=== PATIENT | female | born 1965 | race Caucasian/White ===

== ENCOUNTER → 2016-10-13 | Outpatient (CLI) | payer MEDICARE, MEDICAID | END | disposition home or self-care (01) | LOC: GMAM 10:53 | PROVIDERS: ATTEND Family Medicine | DX: E03.9 Hypothyroidism, unspecified (principal) ==

== ENCOUNTER → 2016-12-08 | Outpatient (CLI) | payer MEDICARE, MEDICAID ==
--- NOTE | 2016-12-08 15:15 | MAM ---
EXAM DESCRIPTION: 3D Screening BILATERAL CLINICAL HISTORY: 51 yearsFemaleSCREENING. No complaints. Aunt with breast cancer. Postmenopausal. No HRT. COMPARISON: 2-D digital screening bilateral study's 11/24/2015 and 11/19/2014. Report from prior examination also reviewed. TECHNIQUE: Bilateral CC and MLO projection full-field images, 3-D tomosynthesis digital mammographic technique. Also bilateral synthesized CC/ MLO full-field images. CAD not utilized. FINDINGS: The breast parenchymal density pattern is: Scattered areas of fibroglandular density. No skin thickening or nipple retraction bilateral axillary lymph nodes. Dense fibroglandular tissues are in the anterior third of both breasts. Stable lymph node in the upper inner quadrant of the middle third of the right breast. No focal, stellate mass or density, focal asymmetry , and no suspicious microcalcifications bilaterally. Stable mammograms compared to prior study, taking into account differences in mammographic technique IMPRESSION: BI-RADS CATEGORY: 2 - BENIGN FINDINGS. FOLLOW UP: Routine digital bilateral screening, one year interval from November 2016. Written communication explaining the findings and follow-up, will be mailed to the patient and referring health care provider. According to the [employer], yearly mammograms are recommended starting at age 40 and continuing as long as a woman is in good health. Any breast change noted on a breast self-exam should be reported promptly to the patient's healthcare provider. Breast MRI is recommended for women with an approximately 20-25% or greater lifetime risk of breast cancer, including women with a strong family history of breast or ovarian cancer and women who have been treated for Hodgkin's disease. A negative mammographic report should not delay tissue diagnosis in patients with significant clinical history or physical findings. Extremely dense breast tissue limits the sensitivity of digital mammography. Electronically signed by: Bryon Barnard MD 12/08/2016 3:13 PM CDT Workstation: [email or web address]
== END | disposition home or self-care (01) ==
LOC: MAMMO 14:50
PROVIDERS: ATTEND Family Medicine
DX: Z12.31 Encounter for screening mammogram for malignant neoplasm of breast (principal)
CPT/HCPCS: 77063; G0202

== ENCOUNTER → 2017-05-16 | Outpatient (CLI) | payer MEDICARE, MEDICAID | LOC: GMAM 10:34 | PROVIDERS: ATTEND Family Medicine | DX: E03.9 Hypothyroidism, unspecified (principal) ==

== ENCOUNTER → 2017-11-23 | Outpatient (CLI) | payer MEDICARE, MEDICAID | LOC: GMAM 10:14 | PROVIDERS: ATTEND Family Medicine | DX: E03.9 Hypothyroidism, unspecified (principal) ==

== ENCOUNTER → 2017-12-11 | Outpatient (CLI) | payer MEDICARE, MEDICAID ==
--- NOTE | 2017-12-12 12:00 | MAM ---
EXAM DESCRIPTION: 3D Screening BILATERAL : Digital Mammography. CLINICAL HISTORY: 52 years Female ANNUAL SCREENING . No personal history of breast cancer. Remote family history of breast cancer. No childbirth. Postmenopausal. No HRT.. Lifetime risk of developing breast cancer (Tyrer-Cuzick model) is 9.1 %. COMPARISON: Bilateral screening digital breast tomosynthesis 12/08/2016. TECHNIQUE: Bilateral CC and MLO projection full-field images, Digital tomosynthesis mammographic technique. Bilateral digital 2-D full-field MLO images. CAD not utilized. FINDINGS: Bilateral breast parenchymal density pattern is: Scattered areas of fibroglandular density. No skin thickening or nipple retraction. Bilateral axillary lymph nodes. Bilateral solitary microcalcifications. No new focal, stellate mass or density, focal asymmetry , and no suspicious microcalcifications bilaterally. Stable mammograms compared to prior study. IMPRESSION: Benign exam BIRAD CATEGORY: 2 BENIGN RECOMMENDATIONS: FOLLOW UP: Routine digital bilateral screening, one year interval from November 2017. Written communication explaining the IMPRESSION and follow-up, will be mailed to the patient and referring health care provider. According to the [employer], yearly mammograms are recommended starting at age 40 and continuing as long as a woman is in good health. Any breast change noted on a breast self-exam should be reported promptly to the patient's healthcare provider. Breast MRI is recommended for women with an approximately 20-25% or greater lifetime risk of breast cancer, including women with a strong family history of breast or ovarian cancer and women who have been treated for Hodgkin's disease. A negative mammographic report should not delay tissue diagnosis in patients with significant clinical history or physical findings. Extremely dense breast tissue limits the sensitivity of digital mammography. Electronically signed by: Bryon Barnard MD 12/12/2017 11:59 AM CDT
== END ==
LOC: MAMMO 08:30
PROVIDERS: ATTEND Family Medicine
DX: Z12.31 Encounter for screening mammogram for malignant neoplasm of breast (principal)

== ENCOUNTER → 2018-06-28 | Outpatient (CLI) | payer MEDICARE, MEDICAID ==
--- NOTE | 2018-06-29 09:54 | MRI ---
MRI right knee without contrast INDICATION: Knee pain no specific injury arthritis TECHNIQUE: Noncontrast MR imaging right knee standard protocol FINDINGS: Moderate to severe lateral patellar tracking with multifocal grade 4 chondral fissuring subchondral edema and cystic change patellar apex and lateral facet. Small to moderate joint effusion. Small Hernandez's cyst. Cruciate ligaments are intact with minimal interstitial degeneration of the ACL. Small ganglion or para meniscal cyst less likely anterior medial recess. Extensor tendons are intact. Grade 3-4 chondrosis in the midline trochlea on the sagittal images. Multifocal chondrosis in the tibiofemoral compartments most severe laterally which is nearly pyfy-yx-[id number] with up to grade 4 diffuse chondrosis. There is a macerated complex relatively horizontal tear throughout the lateral meniscus with partial lateral extrusion. Mild degenerative fraying medial meniscus. Collateral ligaments are intact. There is genu valgus alignment. IMPRESSION: Osteoarthrosis right knee most severe in the lateral tibiofemoral compartment and patellofemoral joint with genu valgus deformity Complex lateral meniscal tear with volume loss and partial lateral extrusion with maceration especially body and posterior horn No acute stabilizing ligament injury Lateral patellar tracking/subluxation Small to moderate joint effusion and small Hernandez's cyst Electronically signed by: Carlos Lemon MD 06/29/2018 9:50 AM CDT
== END ==
LOC: MRI 10:00
PROVIDERS: ATTEND Family Medicine
DX: S83.281A Other tear of lateral meniscus, current injury, right knee, initial encounter (principal); S83.011A Lateral subluxation of right patella, initial encounter; M17.11 Unilateral primary osteoarthritis, right knee; M71.21 Synovial cyst of popliteal space [Baker], right knee

== ENCOUNTER → 2018-07-13 | Outpatient (CLI) | payer MEDICARE, MEDICAID | LOC: GMAM 11:08 | PROVIDERS: ATTEND Family Medicine | DX: E03.9 Hypothyroidism, unspecified (principal) ==

== ENCOUNTER → 2018-07-16 | Outpatient (CLI) | payer MEDICARE, MEDICAID ==
--- NOTE | 2018-07-16 14:37 | RAD ---
EXAM DESCRIPTION: Pelvis CLINICAL HISTORY: 52 years Female, M25.551 COMPARISON: None. FINDINGS: Single AP view the pelvis shows no displaced pelvic fracture. Mild degenerative changes in the right sacroiliac joint. Severe degenerative changes in the right hip including joint space narrowing with vqjg-[id number]-wyzh or near ojec-za-dcng alignment. The left hip joint space is fairly well-maintained. Moderate amount of fine stool and gas. IMPRESSION: Advanced degenerative changes in the right hip including vwfx-ay-[id number] or near nhpd-ax-dkia alignment. Electronically signed by: Jose Carlos Zavala MD 07/16/2018 2:34 PM CDT
== END ==
LOC: RAD 07:59
PROVIDERS: ATTEND Orthopaedic Surgery
DX: M16.11 Unilateral primary osteoarthritis, right hip (principal); M25.551 Pain in right hip

== ENCOUNTER → 2018-08-01 | Outpatient (CLI) | payer MEDICARE, MEDICAID ==
--- NOTE | 2018-08-01 16:30 | CT ---
EXAM DESCRIPTION: Pelvis CLINICAL HISTORY: 52 years Female, OSTEOARTHRITIS OF PELVIC REGION COMPARISON: Radiograph of the pelvis dated 07/16/2018. TECHNIQUE: Contiguous axial images through the pelvis were obtained without intravenous contrast administration. Sagittal, coronal and 3-D reconstructions were reviewed. This exam was performed according to our departmental dose-optimization program, which includes automated exposure control, adjustment of the mA and/or kV according to patient size and/or use of iterative reconstruction technique. FINDINGS: The visualized bones appear well mineralized. No acute fracture or dislocation. Severe osteoarthritis of the right hip is noted with cfnl-lw-[id number] appearance. Large subchondral cysts are identified in the acetabular and femoral head. Large osteophytes are also identified. Mild degenerative changes are identified in the left hip joint. Moderate degenerative changes are identified in the symphysis pubis. The pelvic ring is intact. Incidental note is made of mild constipation. The urinary bladder demonstrates a circumferentially thick wall.. No other abnormality is noted in the visualized intrapelvic contents. IMPRESSION: 1. Severe right hip osteoarthritis with [id number]-[id number]-[id number] appearance. 2. Mild left hip osteoarthritis. Electronically signed by: Devi Ríos MD 08/01/2018 4:27 PM CDT
== END ==
LOC: CT 10:00
PROVIDERS: ATTEND Orthopaedic Surgery
DX: M16.0 Bilateral primary osteoarthritis of hip (principal)

== ENCOUNTER → 2018-08-02 | Outpatient (CLI) | payer MEDICARE, MEDICAID | LOC: LAB.O 14:25 | PROVIDERS: ATTEND Orthopaedic Surgery | DX: Z01.818 Encounter for other preprocedural examination (principal) ==

== ENCOUNTER 2018-08-16 12:48 | Emergency (ER) | payer MEDICARE, MEDICAID ==
[2018-08-16] MEDS ORDERED: DEXAMETHASONE INJ 4 MG/ML VIAL IV ONE (13:23)
[2018-08-16] MEDS ORDERED: PROCHLORPERAZINE INJ 10 MG/2 ML VIAL IV ONE (13:23)
[2018-08-16] MEDS ORDERED: SODIUM CHLORIDE 0.9% 500ML 500 ML IVS ONE (13:23)
--- NOTE | 2018-08-16 13:26 | ED.PDOC ---
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 Timing/Duration: 4-6 hours Severity: moderate Improving Factors: rest Worsening Factors: movement Associated Symptoms: headaches Allergies/Adverse Reactions: Allergies Penicillins Allergy (Verified 08/16/18 13:30) Home Medications: Ambulatory Orders Rosuvastatin Calcium [Crestor] 10 mg PO DAILY 08/04/14 Sulfamethoxazole-Trimethoprim [Bactrim Ds 800-160 mg] 1 tab PO BID #20 tab 01/29/16 DULoxetine HCL [Cymbalta] 30 mg PO DAILY 08/16/18 Lamotrigine 50 mg PO QPM 08/16/18 Levothyroxine Sodium [Synthroid] 0.025 mg PO QAM 08/16/18 Meclizine HCl [Meclizine 25] 25 mg PO Q4HR PRN #30 tab 08/16/18 rifAMPin [Rifampin] 300 mg PO DAILY 08/16/18 Review of Systems - Review of Systems Constitutional: States: no symptoms reported EENTM: States: see HPI Respiratory: States: no symptoms reported Cardiology: States: no symptoms reported Gastrointestinal/Abdominal: States: no symptoms reported Genitourinary: States: no symptoms reported Musculoskeletal: States: joint pain - right hip chronic Skin: States: no symptoms reported Neurological: States: see HPI, other - dizziness Endocrine: States: see HPI Hematologic/Lymphatic: States: no symptoms reported Past Medical History (General) - Patient Medical History Hx Seizures: No Hx Stroke: No Hx Dementia: No Hx Asthma: No Hx of COPD: No Hx Cardiac Disorders: No Hx Congestive Heart Failure: No Hx Pacemaker: No Hx Hypertension: No Hx Thyroid Disease: No Hx Gastroesophageal Reflux: Yes Hx Renal Disease: No Hx Cancer: No Hx of HIV: No Hx Hepatitis C: No Hx MRSA: No Surgical History: tonsillectomy - Vaccination History Hx Influenza Vaccination: Yes - Social History Hx Tobacco Use: No Hx Alcohol Use: No Hx Depression: No Feels Threatened In Home Enviroment: No Hx Physical Abuse: No Hx Emotional Abuse: No - Female History Patient is a Female of Child Bearing Age (10 -59 yrs old): Yes Patient : No Family Medical History - Family History Father Living Status: Still Living Hx Family Hypertension: Yes Hx Family Diabetes: Yes Mother Hx Family Hypertension: Yes Hx Family Diabetes: Yes Physical Exam - Physical Exam General Appearance: Alert, Comfortable, No apparent distress Eye Exam: bilateral normal Ears, Nose, Throat: hearing grossly normal, normal ENT inspection, normal pharynx Neck: non-tender, full range of motion, supple, normal inspection Respiratory: chest non-tender, lungs clear, normal breath sounds, no respiratory distress Cardiovascular/Chest: normal peripheral pulses, regular rate, rhythm, diastolic murmur - 2 LICS Peripheral Pulses: radial,right: 2+, radial,left: 2+ Gastrointestinal/Abdominal: normal bowel sounds, non tender, soft Back Exam: no CVA tenderness, no vertebral tenderness Extremity: normal range of motion, non-tender Neurologic: alert, oriented x 3 Skin Exam: normal color, warm/dry Lymphatic: no adenopathy Progress - Progress Progress: 08/16/18 13:34 Vital Signs - 24 hr 08/16/18 13:21 Temperature 97.5 F L Pulse Rate [L 56 L finger] Respiratory 18 Rate Blood Pressure 148/78 [R arm] O2 Sat by Pulse 100 Oximetry - Results/Orders Results/Orders: 08/16/18 13:23 IV Care:Saline Lock per Protoc QSHIFT Laboratory Results - last 24 hr 08/16/18 08/16/18 08/16/18 13:29 13:29 13:29 WBC 5.6 RBC 4.48 Hgb 14.4 Hct 43.0 MCV 96.1 MCH 32.2 H MCHC 33.5 RDW 14.8 H Plt Count 322 MPV 7.6 Absolute Neuts (auto) 4.10 Absolute Lymphs (auto) 1.00 Absolute Monos (auto) 0.50 Absolute Eos (auto) 0.00 Absolute Basos (auto) 0.10 Neutrophils % 73.0 Lymphocytes % 17.1 L Monocytes % 8.1 Eosinophils % 0.5 L Basophils % 1.3 ESR 21 PT 9.7 INR 0.97 PTT (SP) 27.9 Sodium 131 L Potassium 3.8 Chloride 97 L Carbon Dioxide 22 Anion Gap 15.8 BUN 11 Creatinine 0.84 BUN/Creatinine Ratio 13.1 Random Glucose 108 H Serum Osmolality 262.6 L Lactic Acid 1.4 Calcium 9.0 Magnesium 2.3 Total Bilirubin 1.0 Direct Bilirubin 0.3 H Indirect Bilirubin 0.7 AST 44 H ALT 32 Alkaline Phosphatase 79 Creatine Kinase 85 CK-MB (CK-2) 3.0 CK-MB (CK-2) % Not Reportable Troponin I < 0.02 Serum Total Protein 7.8 Albumin 4.2 Urine Color Urine Appearance Urine pH Ur Specific [place] Urine Protein Urine Glucose (UA) Urine Ketones Urine Blood Urine Nitrite Urine Bilirubin Urine Urobilinogen Ur Leukocyte Esterase Urine RBC Urine WBC Ur Epithelial Cells Urine Bacteria 08/16/18 14:17 WBC RBC Hgb Hct MCV MCH MCHC RDW Plt Count MPV Absolute Neuts (auto) Absolute Lymphs (auto) Absolute Monos (auto) Absolute Eos (auto) Absolute Basos (auto) Neutrophils % Lymphocytes % Monocytes % Eosinophils % Basophils % ESR PT INR PTT (SP) Sodium Potassium Chloride Carbon Dioxide Anion Gap BUN Creatinine BUN/Creatinine Ratio Random Glucose Serum Osmolality Lactic Acid Calcium Magnesium Total Bilirubin Direct Bilirubin Indirect Bilirubin AST ALT Alkaline Phosphatase Creatine Kinase CK-MB (CK-2) CK-MB (CK-2) % Troponin I Serum Total Protein Albumin Urine Color Dille H Urine Appearance Clear Urine pH 8.5 H Ur Specific [place] 1.020 Urine Protein 30 Urine Glucose (UA) Negative Urine Ketones Trace Urine Blood Negative Urine Nitrite Negative Urine Bilirubin Small H Urine Urobilinogen 4.0 H Ur Leukocyte Esterase Negative Urine RBC 0 Urine WBC 0 Ur Epithelial Cells 0 Urine Bacteria 0 Discuss all test result with patient .Wanting to go home - EKG/XRAY/CT XRAY: chest - no acute findings CT Ordered: Yes - head no acute abnormalities noted Departure - Departure Clinical Impression: Dizziness, nonspecific Headache Qualifiers: Headache type: unspecified Headache chronicity pattern: unspecified pattern Intractability: not intractable Qualified Code(s): R51 - Headache Time of Disposition: 15:17 Disposition: Discharge to Home or Self Care Condition: Fair Departure Forms: ED Discharge - Pt. Copy, Patient Portal Self Enrollment Instructions: Dizziness, Nonvertigo, (DC) Referrals: Buddy Calderon MD [Primary Care Provider] - 1-2 Weeks Prescriptions: Meclizine HCl [Meclizine 25] 25 mg PO Q4HR PRN #30 tab PRN Reason: Dizziness Home Medications: Ambulatory Orders Rosuvastatin Calcium [Crestor] 10 mg PO DAILY 08/04/14 Sulfamethoxazole-Trimethoprim [Bactrim Ds 800-160 mg] 1 tab PO BID #20 tab 01/29/16 DULoxetine HCL [Cymbalta] 30 mg PO DAILY 08/16/18 Lamotrigine 50 mg PO QPM 08/16/18 Levothyroxine Sodium [Synthroid] 0.025 mg PO QAM 08/16/18 Meclizine HCl [Meclizine 25] 25 mg PO Q4HR PRN #30 tab 08/16/18 rifAMPin [Rifampin] 300 mg PO DAILY 08/16/18 Additional Instructions: Continue with all home medications;Return to Emergency Room as needed
--- NOTE | 2018-08-16 13:58 | RAD ---
EXAM DESCRIPTION: Chest,1 View CLINICAL HISTORY: 52 years Female, dizziness/tyler COMPARISON: 08/04/2014 IMPRESSION: The heart is enlarged, without failure. There is no airspace consolidation, pleural effusion, or pneumothorax. No acute osseous abnormality. Electronically signed by: Shan Jeffries MD 08/16/2018 1:56 PM CDT
--- NOTE | 2018-08-16 13:59 | CT ---
EXAM DESCRIPTION: Head CLINICAL HISTORY: dizziness /headache COMPARISON: Previous CT scan April 24, 2012 TECHNIQUE: Noncontrast head CT was performed with routine protocol. FINDINGS: Normal mathur-white matter differentiation. Incidental calcification of the basal ganglia. Ventricles and sulci are normal for age. Prominent vessels along the surface of the left parietal lobe are unchanged suggesting vascular malformation. Previous postcontrast study showed large tortuous vessels over the surface of the left cerebral hemisphere. No high density hemorrhage, focal edema or shift of the midline. No sulcal effacement. Normal orbital contents. Basilar cisterns appear clear. Intact calvarium with no fracture or lytic lesion. Normal aeration of tympanic cavities and mastoid air cells. Frothy fluid in left sphenoid sinus. Skull base appears intact. Symmetrical internal auditory canals. IMPRESSION: No acute intracranial pathologic process. This exam was performed according to our departmental dose-optimization program, which includes automated exposure control, adjustment of the mA and/or kV according to patient size and/or use of iterative reconstruction technique. Total DLP equals 752.48 mGycm. Electronically signed by: Derrell Ennis MD 08/16/2018 1:57 PM CDT
[2018-08-16] MEDS ORDERED: ALPRAZolam 0.25 MG TAB PO ONE (14:45)
[2018-08-16 15:45] VITALS: BP 143/82; TEMP 96.5; O2SAT 100
== END 2018-08-16 15:35 | disposition home or self-care (01) ==
LOC: ER 12:48
DX: R51 Headache (principal); R42 Dizziness and giddiness; Q90.9 Down syndrome, unspecified; K21.9 Gastro-esophageal reflux disease without esophagitis; Z79.899 Other long term (current) drug therapy; Z88.0 Allergy status to penicillin
CPT/HCPCS: 36415; 70450; 71045; 80048; 80076; 81001; 82550; 82553; 83605; 84484; 85025; 85610; 85651; 85730; J0780; J1100; J7040

== ENCOUNTER → 2018-08-23 | Outpatient (CLI) | payer MEDICARE, MEDICAID | LOC: GMAM 15:07 | PROVIDERS: ATTEND Family Medicine | DX: E03.9 Hypothyroidism, unspecified (principal) ==

== ENCOUNTER 2018-08-31 05:55 | Inpatient (IN) | payer MEDICARE, MEDICAID ==
--- NOTE | 2018-08-30 11:06 | RAD ---
EXAM DESCRIPTION: Cervical Spine,3 Views CLINICAL HISTORY: 52 years Female, surgery COMPARISON: None. FINDINGS: Three-view cervical spine demonstrates reversal of normal lordosis in the mid cervical spine with marked disc degeneration from C2-3 through C6-7 with minimal curvature of the spine convex to the left. No marked anterior subluxation is noted. The odontoid is intact. IMPRESSION: Advanced multilevel degenerative disc disease with loss of normal cervical lordosis and milder facet arthrosis noted. Bony ridging posteriorly is most evident at the C3-4 level. Electronically signed by: Buddy Orta MD 08/30/2018 11:04 AM CDT
--- NOTE | 2018-08-30 13:48 | HP ---
CHIEF COMPLAINT: Right hip pain. HISTORY OF PRESENT ILLNESS: Irish is a 52-year-old lady with a history of hip pain and pain in the knee. She has had treatment for the knee, however, has still had ongoing discomfort. The pain seems to be radiating from the hip which does have severe arthritis. Because of those findings, we have discussed options. Irish does have Down syndrome and I discussed all these medical options with her parents. After discussing the risks, benefits and alternatives to operative therapy, they have given informed consent for total hip arthroplasty. PAST SURGICAL HISTORY: None. MEDICATIONS: 1. Calcium. 2. Duloxetine. 3. Levothyroxine. 4. Aspirin. 5. Multiple vitamins. ALLERGIES: NO KNOWN DRUG ALLERGIES. CODE STATUS: Full code. IMMUNIZATIONS: Up to date. FAMILY HISTORY: None pertinent to today's complaint. SOCIAL HISTORY: The patient does not drink, smoke or use any illicit drugs. REVIEW OF SYSTEMS: Negative except as indicated in the History of Present Illness. PHYSICAL EXAMINATION: VITAL SIGNS: Blood pressure 120/50. Pulse 70. Height 5'. Weight 132 pounds. MENTAL STATUS: The patient is awake, alert, and is able to give a good history and participate in the physical. The patient is oriented to person, place and time. SKIN: Normal tone and turgor. HEENT: Normocephalic, atraumatic. Pupils equal, round and reactive. Mucosal membranes are moist. NECK: Normal range of motion. No thyromegaly, no lymphadenopathy. CHEST: Normal respiratory excursion. CARDIAC: Regular rate and rhythm. No murmurs, rubs or gallops. MUSCULOSKELETAL: She has full range of motion in the upper extremities without pain. She has no crepitus or deformity. The extremities are warm and well perfused. strength is 5/5. The left lower extremity shows no pain with range of motion of the hip or knee. She has intact sensation. There is no deformity. It is warm and well perfused. The right lower extremity shows severe pain with range of motion of the hip and especially with internal rotation which is only to about 5 degrees. She has external rotation to about 15 degrees. Sensation is intact. It is warm and well perfused. She has 5/5 strength in plantar flexion. She has some minor pain with palpation to the knee. There is no swelling or deformity at that level. IMAGING: X-rays show severe arthritis of the hip. ASSESSMENT: 1. Osteoarthritis. PLAN: The plan at this point is for total hip arthroplasty. We have discussed the risks, benefits, and alternatives to that and informed consent has been obtained. #[id number] [facility]
[2018-08-31] MEDS ORDERED: SODIUM CHL 0.9% 100ML MINI-BAG 100 ML IVPB ONE (06:00)
[2018-08-31] MEDS ORDERED: TRANEXAMIC ACID 1,000 MG/10 ML VIAL ONE ×2 (06:00→06:02)
[2018-08-31] MEDS ORDERED: LACTATED RINGERS 1,000 ML ONE (06:00)
[2018-08-31] MEDS ORDERED: VANCOMYCIN HCL INJ 1,000 MG VIAL IVPB ONE ×3 (06:01→19:19)
[2018-08-31] MEDS ORDERED: SODIUM CHLORIDE 0.9% 250ML 250 ML ONE ×3 (06:01→19:18)
[2018-08-31] MEDS ORDERED: SODIUM CHLORIDE 0.9% 100ML 100 ML IVPB ONE (06:01)
[2018-08-31] MEDS ORDERED: ceFAZolin SODIUM 1 GM VIAL ONE ×4 (06:01→19:19)
[2018-08-31] MEDS ORDERED: MORPHINE SULFATE *EPIDURAL* 0.5 MG/ML VIAL ONE (06:37)
[2018-08-31] MEDS ORDERED: fentaNYL CITRATE INJ 50 MCG/ML AMP ONE (06:37)
[2018-08-31] MEDS ORDERED: MIDAZOLAM INJ 2 MG/2 ML VIAL ONE (06:37)
[2018-08-31] MEDS ORDERED: NALOXONE HCL INJ 0.4 MG/ML VIAL IV PRN (07:02)
[2018-08-31] MEDS ORDERED: PROMETHAZINE HCL INJ 12.5 MG in SODIUM CHLORIDE 0.9% 50ML 50 ML IVPB PRN (07:02)
[2018-08-31] MEDS ORDERED: ACETAMINOPHEN 500 MG TAB PO PRN (07:02)
[2018-08-31] MEDS ORDERED: PROMETHAZINE HCL INJ 25 MG in SODIUM CHLORIDE 0.9% 50ML 50 ML IVPB PRN (07:02)
[2018-08-31] MEDS ORDERED: ZOLPIDEM TARTRATE 5 MG TAB PO PRN (07:02)
[2018-08-31] MEDS ORDERED: SODIUM CHLORIDE 0.45% 1000ML 1,000 ML IV PRN (07:02)
[2018-08-31] MEDS ORDERED: CYCLOBENZAPRINE HCL 10 MG TAB PO PRN (07:02)
[2018-08-31] MEDS ORDERED: BISACODYL SUPPOSITORY 10 MG PR PRN (07:02)
[2018-08-31] MEDS ORDERED: MORPHINE SULFATE INJ 10 MG/ML VIAL IV PRN (07:02)
[2018-08-31] MEDS ORDERED: ALUMINUM & MAGNESIUM HYDROXIDE 30 ML UD PO PRN (07:02)
[2018-08-31] MEDS ORDERED: SODIUM CHLORIDE 0.9% (FLUSH) 10 ML SYG IV PRN (07:02)
[2018-08-31] MEDS ORDERED: ONDANSETRON INJ 4 MG/2 ML VIAL IV PRN (07:02)
[2018-08-31] MEDS ORDERED: ACETAMINOPHEN 325 MG TAB PO PRN (07:02)
[2018-08-31] MEDS ORDERED: TEMAZEPAM 15 MG CAP PO PRN (07:02)
[2018-08-31] MEDS ORDERED: TRANEXAMIC ACID INJ 1,000 MG in SODIUM CHLORIDE 0.9% 100ML 100 ML IVPB ONE (07:02)
[2018-08-31] MEDS ORDERED: BENZOCAINE-MENTH LOZ (CEPACOL) 1 EA LOZ MT PRN (07:02)
[2018-08-31] MEDS ORDERED: MAGNESIUM HYDROXIDE 30 ML UD PO PRN (07:02)
[2018-08-31] MEDS ORDERED: MORPHINE SULFATE INJ 10 MG/ML VIAL IM PRN (07:02)
[2018-08-31] MEDS ORDERED: ROCURONIUM BROMIDE 10 MG/ML VIAL ONE (07:14)
[2018-08-31] MEDS ORDERED: MORPHINE PCA 1 MG/ML 100 ML BAG IVPB SCH (07:30)
[2018-08-31] MEDS ORDERED: ACETAMINOPHEN IV 1000MG 100 ML ONE (08:13)
[2018-08-31] MEDS: ceFAZolin SODIUM 1 GM VIAL ONE ×2 (08:15→08:52)
[2018-08-31] MEDS: VANCOMYCIN HCL INJ 1,000 MG VIAL IVPB ONE ×2 (08:15→08:52)
[2018-08-31] MEDS: BUPIVACAINE 0.5% 30 ML VIAL INJ ONE ×2 (08:16→08:52)
[2018-08-31] MEDS: BUPIVACAINE LIPOSOME 13.3 MG/ML VIAL INJ ONE ×2 (08:16→08:52)
[2018-08-31] MEDS ORDERED: BUPIVACAINE LIPOSOME 13.3 MG/ML VIAL INJ ONE (08:32)
[2018-08-31] MEDS ORDERED: ELECTROLYTE-A 1,000 ML IVS ONE (09:02)
[2018-08-31] MEDS ORDERED: SUGAMMADEX SODIUM 200 MG/2 ML VIAL IV ONE (09:40)
[2018-08-31] MEDS ORDERED: ePHEDrine SULF 50 MG/ML IV ONE (10:00)
[2018-08-31] MEDS ORDERED: PROPOFOL 200 MG/20 ML VIAL IV ONE (10:00)
[2018-08-31] MEDS ORDERED: raNITIdine HCL INJ 25 MG/ML VIAL IV ONE (10:00)
[2018-08-31] MEDS ORDERED: DEXAMETHASONE INJ 10 MG/ML VIAL IV ONE (10:00)
[2018-08-31] MEDS ORDERED: LIDOCAINE 1% 10 ML VIAL INJ ONE (10:00)
[2018-08-31] MEDS ORDERED: SODIUM CHL 0.9% 50ML MIN-BAG+ 50 ML IVPB ONE ×2 (16:45→19:18)
[2018-08-31] MEDS: MAGNESIUM OXIDE 400 MG TAB PO SCH (16:45)
[2018-08-31] MEDS: IV SET AND CAP CHANGE INJ INJ SCH (16:45)
[2018-08-31] MEDS: ceFAZolin SODIUM 1 GM in SODIUM CHL 0.9% 50ML MIN-BAG+ 50 ML IVPB SCH ×2 (16:47→23:59)
[2018-08-31] MEDS: CELECOXIB 100 MG CAP PO SCH (16:52)
[2018-08-31] MEDS: VANCOMYCIN HCL INJ 1,000 MG in SODIUM CHLORIDE 0.9% 250ML 250 ML IVPB SCH (18:14)
[2018-08-31] MEDS: lamoTRIgine 25 MG TAB PO SCH (18:15)
[2018-08-31] MEDS ORDERED: LEVOTHYROXINE SODIUM 0.025 MG TAB ONE (19:18)
[2018-08-31] MEDS ORDERED: ENOXAPARIN SODIUM 30 MG/0.3 ML SYG SUBCU ONE (19:18)
[2018-08-31] MEDS ORDERED: KCL 20MEQ/0.45% NS 1,000 ML IVS ONE (20:26)
[2018-08-31] MEDS: DOCUSATE CALCIUM 240 MG CAP PO SCH (20:33)
--- NOTE | 2018-08-31 22:01 | CONS ---
DATE OF CONSULTATION: 08/31/18 SUPERVISING PHYSICIAN: Coy Salas M.D. CHIEF COMPLAINT: Right hip pain. HISTORY OF PRESENT ILLNESS: This is a 52 year-old female patient who has a history of right hip and knee pain. She does have severe arthritis in that hip that radiates down to the knee. Because of this discomfort, Irish and her family have requested that Dr. Channing Alarcon, orthopedic surgeon, perform right total hip replacement. The patient had no problems intraoperatively. She was brought to the Medical/Surgical floor after surgery. Irish does have a history of Down's syndrome. Her father is at the bedside. PAST MEDICAL HISTORY: 1. Down's syndrome. 2. Seizure disorder. 3. Gastroesophageal reflux disease. 4. Hyperlipidemia. 5. Hypothyroidism. PAST SURGICAL HISTORY: 1. Tonsillectomy. HOME MEDICATIONS: 1. Aspirin. 2. Calcium. 3. Multivitamins. 4. Cymbalta. 5. Lamotrigine. 6. Levothyroxine. ALLERGIES: PENICILLIN. CODE STATUS: FULL CODE. FAMILY HISTORY: Noncontributory. SOCIAL HISTORY: She lives in [place] with her parents. She does not use tobacco, ETOH or illicit drugs. REVIEW OF SYSTEMS: Negative except as per History of Present Illness. PHYSICAL EXAMINATION: VITAL SIGNS: Temperature 98.2, heart rate 61, blood pressure 88/42, respiratory rate 20, O2 sat 100% on room air. GENERAL: This is a 52 year-old female patient who is lying in her hospital bed. She is in no acute distress. HEENT: Normocephalic and atraumatic. Pupils are equal and reactive. Oropharynx is clear. NECK: Supple without mass. RESPIRATORY: Essentially clear to auscultation bilaterally. HEART: Regular rate and rhythm. GASTROINTESTINAL: Abdomen is soft, nondistended, non-tender. Bowel sounds are positive. EXTREMITIES: No clubbing, cyanosis or edema. She does have bilateral pedal pulses that are palpable at +2. She has a dressing to the right lateral aspect of her hip that is dry and intact. NEUROLOGIC: She is awake, alert and oriented times three. LABORATORY: CBC is unremarkable. BMP shows sodium 138, potassium 3.5, chloride 102, carbon dioxide 27, BUN 9, creatinine 0.63. Urinalysis is negative. UDS is negative. All other labs and films have been reviewed via the EMR. IMPRESSION: 1. Osteoarthritis of the right hip status post right total hip arthroplasty performed by Dr. Channing Alarcon, orthopedic surgeon. Postoperative day #0. 2. Down's syndrome. 3. Seizure disorder. 4. Hyperlipidemia. 5. Hypothyroidism. PLAN: We will continue present supportive care. Orthopedic issues will be per Dr. Channing Alarcon, orthopedic surgeon. She will begin physical therapy for strengthening and conditioning tomorrow. I have restarted her home medications. Her blood pressure is slightly on the low side, but she has no symptoms of decreased level of consciousness and she continues to urinate without problems. If needed, I will give her a 250 bolus of IV fluids. I have instructed the nurses to call me if she has any problems. I have discussed with her dad hip precautions as well as good pulmonary hygiene, including incentive spirometry. Will continue to monitor closely and follow as needed. [facility][id number] [facility]
[2018-08-31] MEDS: ENOXAPARIN SODIUM 30 MG/0.3 ML SYG SUBCU SCH (22:33)
[2018-09-01] MEDS: LEVOTHYROXINE SODIUM 0.025 MG TAB PO SCH (06:13)
[2018-09-01] MEDS: VANCOMYCIN HCL INJ 1,000 MG in SODIUM CHLORIDE 0.9% 250ML 250 ML IVPB SCH (06:13)
[2018-09-01] MEDS ORDERED: ceFAZolin SODIUM 1 GM VIAL ONE (07:07)
[2018-09-01] MEDS ORDERED: SODIUM CHL 0.9% 50ML MIN-BAG+ 50 ML IVPB ONE (07:07)
[2018-09-01] MEDS: CELECOXIB 100 MG CAP PO SCH ×2 (07:21→17:28)
[2018-09-01] MEDS: ceFAZolin SODIUM 1 GM in SODIUM CHL 0.9% 50ML MIN-BAG+ 50 ML IVPB SCH (07:22)
[2018-09-01] MEDS: MAGNESIUM OXIDE 400 MG TAB PO SCH (09:45)
[2018-09-01] MEDS: DULoxetine HCL 30 MG CAP PO SCH (09:45)
[2018-09-01] MEDS ORDERED: LACTATED RINGERS 1,000 ML IVS PRN (10:07)
[2018-09-01] MEDS: ENOXAPARIN SODIUM 30 MG/0.3 ML SYG SUBCU SCH ×2 (12:03→22:34)
--- NOTE | 2018-09-01 14:44 | PN ---
DATE: 09/01/18 SUBJECTIVE: Irish is actually doing pretty well. She has been up out of bed. She is not having much in the way of pain. PLAN: At this point Irish is going to continue on with therapy. I have gone over with Irish and her mom again regarding the necessary activity on the patient with her. She is going to continue to utilize an abduction pillow. #[id number] [facility]
--- NOTE | 2018-09-01 15:15 | PN ---
DATE: 09/01/18 SUPERVISING PHYSICIAN: Coy Salas M.D. SUBJECTIVE: The patient indicates she does not have any pain at this time. The nurses at the bedside state that she has been using her SURVEY FIELD TECHNICIAN pump and has good pain control. She is out of bed and in a chair at this time. OBJECTIVE: Blood pressure 83/55, heart rate 65, respiratory rate 14, temperature 98.3, oxygen saturation 99%. GENERAL: Ms. Summers is a 52 year- old female with no active distress currently. NEUROLOGIC: The patient is alert. LUNGS: Clear. CARDIOVASCULAR: Regular rate and rhythm. Normal S1 and S2. ABDOMEN: Soft. Positive bowel sounds. EXTREMITIES: Right hip with a dressing that dry and intact. LABORATORY: Hemoglobin 10.4, hematocrit 31.8. Chemistry shows sodium 137, potassium 4.0, chloride 106, CO2 is 23, BUN is less than 5, creatinine 0.47, calcium 7.0. ASSESSMENT: 1. Right hip osteoarthritis status post right total hip arthroplasty. Postoperative day #1. 2. Down's syndrome. 3. Seizure disorder. 4. Hyperlipidemia. 5. Hypothyroidism. PLAN: Will continue physical therapy and pain control per postoperative orders. Anticoagulation will start as well. I will recheck a hemoglobin tomorrow as there is about a 4 gram drop in the hemoglobin from the one before. [facility][id number] [facility]
[2018-09-01] MEDS: lamoTRIgine 25 MG TAB PO SCH (17:28)
[2018-09-01] MEDS: DOCUSATE CALCIUM 240 MG CAP PO SCH (20:37)
[2018-09-02] MEDS: LEVOTHYROXINE SODIUM 0.025 MG TAB PO SCH (06:09)
[2018-09-02] MEDS: HYDROcodone 5MG/APAP 325MG 1 EA TAB PO PRN ×3 (07:08→20:57)
[2018-09-02] MEDS: CELECOXIB 100 MG CAP PO SCH ×2 (07:53→17:14)
[2018-09-02] MEDS ORDERED: SODIUM CHLORIDE 0.9% (FLUSH) 10 ML SYG IV SCH (09:00)
[2018-09-02] MEDS: MAGNESIUM OXIDE 400 MG TAB PO SCH (09:04)
[2018-09-02] MEDS: DULoxetine HCL 30 MG CAP PO SCH (09:04)
--- NOTE | 2018-09-02 09:33 | RAD ---
EXAM DESCRIPTION: Hip,Right 2 Views (accession [id number]), Pelvis (accession [id number]): CR/DR/XR CLINICAL HISTORY: post op right total hip arthroplasty. COMPARISON: AP pelvis 07/16/2018, prior to surgery. TECHNIQUE: One view AP pelvis and 2 views of the right hip. FINDINGS: Right total hip arthroplasty. 3 screws fixating the acetabular component. Customary position and near-anatomic alignment. Bones surrounding the components is unremarkable. No fracture. No abnormal radiodense objects in the soft tissues or joint spaces. 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 IMPRESSION: Right total hip arthroplasty customary position and near-anatomic alignment. No bony or hardware abnormalities. Electronically signed by: Bryon Barnard MD 09/02/2018 9:31 AM CDT
--- NOTE | 2018-09-02 09:34 | RAD ---
EXAM DESCRIPTION: Hip,Right 2 Views (accession [id number]), Pelvis (accession [id number]): CR/DR/XR CLINICAL HISTORY: post op right total hip arthroplasty. COMPARISON: AP pelvis 07/16/2018, prior to surgery. TECHNIQUE: One view AP pelvis and 2 views of the right hip. FINDINGS: Right total hip arthroplasty. 3 screws fixating the acetabular component. Customary position and near-anatomic alignment. Bones surrounding the components is unremarkable. No fracture. No abnormal radiodense objects in the soft tissues or joint spaces. 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 IMPRESSION: Right total hip arthroplasty customary position and near-anatomic alignment. No bony or hardware abnormalities. Electronically signed by: Bryon Barnard MD 09/02/2018 9:31 AM CDT
[2018-09-02] MEDS: ENOXAPARIN SODIUM 30 MG/0.3 ML SYG SUBCU SCH ×2 (12:39→23:06)
--- NOTE | 2018-09-02 16:46 | PN ---
DATE: 09/02/18 SUPERVISING PHYSICIAN: Coy Salas M.D. SUBJECTIVE: The patient does not complain of any pain at this time. She did get some [employer] around 7:00 this morning and has been doing well with this. She walked to the door and back. OBJECTIVE: Blood pressure is 90/64, heart rate 70, respiratory rate 14, temperature 97.5, oxygen saturation 97%. GENERAL: Ms. Summers is a 52 year- old female in no active distress. NEUROLOGIC: The patient is alert. LUNGS: Clear to auscultation bilaterally. CARDIOVASCULAR: Regular rate and rhythm. Normal S1 and S2. ABDOMEN: Soft, obese. Positive bowel sounds. EXTREMITIES: Right hip with dressing that is dry and intact. LABORATORY: Hemoglobin 10.6. ASSESSMENT: 1. Right hip osteoarthritis status post right total hip arthroplasty. Postoperative day #2. 2. Down's syndrome. 3. Seizure disorder. 4. Hyperlipidemia. 5. Hypothyroidism. PLAN: Continue physical therapy and pain control per postoperative orders. Continue anticoagulation. Depending on Physical Therapy evaluation, she may need Swing Bed but will have them evaluate that tomorrow. #[id number] [facility]
[2018-09-02] MEDS: lamoTRIgine 25 MG TAB PO SCH (17:14)
[2018-09-02] MEDS: DOCUSATE CALCIUM 240 MG CAP PO SCH (20:56)
[2018-09-02] MEDS: SODIUM CHLORIDE 0.9% (FLUSH) 10 ML SYG IV SCH (21:00)
[2018-09-03] MEDS: LEVOTHYROXINE SODIUM 0.025 MG TAB PO SCH (06:04)
[2018-09-03] MEDS: DULoxetine HCL 30 MG CAP PO SCH (07:49)
[2018-09-03] MEDS: CELECOXIB 100 MG CAP PO SCH (07:49)
[2018-09-03] MEDS: IV SET AND CAP CHANGE INJ INJ SCH (07:50)
[2018-09-03] MEDS: MAGNESIUM OXIDE 400 MG TAB PO SCH (07:50)
[2018-09-03] MEDS: SODIUM CHLORIDE 0.9% (FLUSH) 10 ML SYG IV SCH (07:50)
[2018-09-03] MEDS: HYDROcodone 5MG/APAP 325MG 1 EA TAB PO PRN (08:50)
[2018-09-03 10:10] VITALS: BP 92/59; TEMP 97.7; O2SAT 92
[2018-09-03] MEDS: ENOXAPARIN SODIUM 30 MG/0.3 ML SYG SUBCU SCH (11:10)
[2018-09-03] MEDS ORDERED: BISACODYL SUPPOSITORY 10 MG PR ONE (21:00)
[2018-09-03] MEDS ORDERED: MAGNESIUM HYDROXIDE 30 ML UD PO ONE (21:00)
--- NOTE | 2018-09-04 07:57 | DS ---
SUPERVISING PHYSICIAN: Buddy Calderon MD ADMISSION DIAGNOSIS: 1. Osteoarthritis of the right hip status post right total hip arthroplasty performed by Dr. Channing Alarcon, orthopedic surgeon. 2. Down's syndrome. 3. Seizure disorder. 4. Hyperlipidemia. 5. Hypothyroidism. DISCHARGE DIAGNOSIS: 1. Right hip osteoarthritis status post right total hip arthroplasty. Postoperative day #3. 2. Down's syndrome. 3. Seizure disorder. 4. Hyperlipidemia. 5. Hypothyroidism. HISTORY OF PRESENT ILLNESS: This is a 52-year-old female patient who has a history of right hip and knee pain. She does have severe arthritis in that hip that radiates down to the knee. Because of this discomfort, Irish and her family have requested that Dr. Channing Alarcon, orthopedic surgeon, perform right total hip replacement. The patient had no problems intraoperatively. She was brought to the Medical/Surgical floor after surgery. Irish does have a history of Down's syndrome. Her father was at the bedside at the time of admission to Acute Care and was in stable condition. LABORATORY: Initial hemoglobin 14.2, hematocrit 42.0. At discharge, was hemoglobin 10.6 and hematocrit 31.7. Platelet count on admission was 269. Chemistries on admission showed normal electrolytes with BUN less than 5, creatinine 0.47, magnesium 2.1. Urinalysis was within normal limits. Toxicology screen was all negative as tested. MICROBIOLOGY: MRSA surveillance culture was negative. RADIOLOGY: Please see the preoperative radiologist reports and intraoperative radiology reports. CONSULTATION: See medical consultation, hospitalist services, Lottie Dubon. PROCEDURES: Right total hip arthroplasty. Please see Dr. Alarcon's operative report. HOSPITAL COURSE: Ms. Summers was admitted for elective right total hip arthroplasty that was performed on 08/31/[address] Channing Alarcon. She had no intraoperative complications. She did well postoperatively and progressed through physical therapy, however, was showing a need for continued inpatient rehabilitation efforts. Therefore, the patient is to be discharged from Acute Care and admitted to Swing Bed for ongoing physical therapy. PLAN: Ms. Summers is to be discharged from Acute Care today on 09/03/18 and admitted to the Swing Bed program on 09/03/18 for physical therapy efforts. She is to followup with Dr. Alarcon as scheduled. Medications will continue as on Acute Care as appropriate for Swing Bed. The patient was discharged from Acute Care in stable condition and improving. DISPOSITION: To Swing Bed program at [facility]. [facility][id number] [facility]
--- NOTE | 2018-09-04 08:01 | PN ---
DATE: 09/02/18 SUBJECTIVE: Irish is doing well. She has been up with Physical Therapy. OBJECTIVE: Afebrile. Vital signs stable. Wound is clean. There are no signs or symptoms of infection. ASSESSMENT: Status post total hip arthroplasty. PLAN: The plan is to continue with physical therapy. #[id number] [facility]
--- NOTE | 2018-09-04 08:06 | PN ---
DATE: 09/03/18 SUBJECTIVE: She is doing well. She is having minimal pain. She is ambulating well. OBJECTIVE: Wound is clean. There are no signs or symptoms of infection. ASSESSMENT: Status post total hip arthroplasty. PLAN: The plan at this point is for her to continue with her current status. She will likely transition into a inpatient rehabilitation status. #[id number] [facility]
--- NOTE | 2018-09-05 08:43 | OP ---
DATE OF PROCEDURE: 09/03/18 PREOPERATIVE DIAGNOSIS: 1. Osteoarthritis of the right hip. POSTOPERATIVE DIAGNOSIS: 1. Osteoarthritis of the right hip. PROCEDURE: 1. Total hip arthroplasty. SURGEON: Channing Alarcon MD. ORDNANCE TECHNICIAN: Bryon Ca CST, SA-C. ANESTHESIA: General anesthesia. COMPLICATIONS: None. FINDINGS: Severe osteoarthritis of the hip. INDICATION: Ms. Summers has a history of pain in the leg and especially in the hip. She had treatment for knee pain, but x-rays of the pelvis revealed hip arthritis. Because of that, we discussed options. After discussing the risks, benefits and alternatives to operative therapy, the patient has given informed consent. Informed consent was obtained additionally from her parents as she does suffer from Down's syndrome. PROCEDURE: The patient was brought to the Operating Room and placed in supine position. General anesthesia was induced and the patient was turned into the lateral decubitus position. The patient's leg and hip were then sterilely prepped and draped. Following prepping and draping, an incision was made centered over the greater trochanter and carried both proximally and distally. The iliotibial band was split along the course of its fibers. The abductor musculature was exposed and the anterior one-third was elevated. Following that, the capsule was exposed and a capsulotomy was performed. The hip was dislocated and primary femoral neck cut was made. Following primary femoral neck cut, the acetabulum was exposed and the labral tissue was removed. The acetabulum was sequentially reamed to a size 44 and a size 44 press-fit cup was used. Three screws were used to augment the fixation. Following that, the femoral canal was exposed. An Accolade system was used and the trial was press- fit. A trial head was placed and the patient's hip was reduced. It was taken through a range of motion and there was no pending dislocation. After that, the hip was dislocated and the trial component was removed. The wound was thoroughly irrigated and the final component was impacted. The hip was again reduced and taken through a range of motion. The leg lengths appeared to be equal and there was no evidence of pending dislocation. The wound was very thoroughly irrigated and the abductor musculature was reapproximated. Following reapproximation of the abductor musculature, the iliotibial band was closed and the skin was closed with a combination of running and interrupted subcuticular stitches. Sterile dressings were placed. The patient was transitioned into the supine position and awoken from anesthesia. The patient was taken to Recovery. POSTOPERATIVE PLAN: The patient will be partial weightbearing on postoperative day 1. COMPONENTS: [place] Accolade 2 stem, [place] Tritanium 3-holed cup measuring size 44 and a 32 mm head. #[id number] [facility]
== END 2018-09-03 13:19 | disposition swing bed (61) | DRG 470 ==
LOC: AMB 05:55 → MS 11:34
PROVIDERS: ADMIT Orthopaedic Surgery; ATTEND Nurse Practitioner Family
PROC: 0SR902A Replacement of Right Hip Joint with Metal on Polyethylene Synthetic Substitute, Uncemented, Open Approach (ICD-10-PCS; principal; 2018-08-31 07:05)
DX: M16.11 Unilateral primary osteoarthritis, right hip (principal); Q90.9 Down syndrome, unspecified; G40.909 Epilepsy, unspecified, not intractable, without status epilepticus; K21.9 Gastro-esophageal reflux disease without esophagitis; E78.5 Hyperlipidemia, unspecified; E03.9 Hypothyroidism, unspecified; E66.9 Obesity, unspecified; Z79.82 Long term (current) use of aspirin; Z68.25 Body mass index [BMI] 25.0-25.9, adult; Z88.0 Allergy status to penicillin; Z79.899 Other long term (current) drug therapy

== ENCOUNTER 2018-09-03 13:30 | Inpatient (IN) | payer MEDICARE, MEDICAID ==
[2018-09-03] MEDS ORDERED: MAGNESIUM HYDROXIDE 30 ML UD PO PRN (14:39)
[2018-09-03] MEDS ORDERED: TEMAZEPAM 15 MG CAP PO PRN (14:39)
[2018-09-03] MEDS ORDERED: SODIUM PHOS/BIPHOS ENEMA ADULT 133 ML BTTL PR PRN (14:39)
[2018-09-03] MEDS: lamoTRIgine 25 MG TAB PO SCH (16:49)
--- NOTE | 2018-09-03 18:41 | HP ---
SUPERVISING PHYSICIAN: Buddy Calderon M.D. CHIEF COMPLAINT: Right total hip replacement. HISTORY OF PRESENT ILLNESS: Ms. Summers is a 52 year-old female patient that was admitted on 08/31/18 for elective total right hip arthroplasty. She had a history of severe arthritis in the hip that was radiating down to her knee. Due to the discomfort she had requested that total right hip replacement be completed for pain control. Dr. Alarcon, orthopedic surgeon, completed total right hip arthroplasty on 08/31/18. She had no intraoperative complications. She did well postoperatively but given her underlying comorbidities and the fact that she does have some mental challenge with having Down's syndrome, needs continuation of physical therapy in a controlled environment, therefore she is being admitted to Swing Bed for continuation of physical therapy and rehabilitation efforts. She was admitted in stable condition. PAST MEDICAL HISTORY: 1. Down's syndrome. 2. Seizure disorder. 3. Gastroesophageal reflux disease. 4. Hyperlipidemia. 5. Hypothyroidism. PAST SURGICAL HISTORY: 1. Tonsillectomy. HOME MEDICATIONS: 1. Aspirin. 2. Calcium. 3. Multivitamins. 4. Cymbalta. 5. Lamotrigine. 6. Levothyroxine. ALLERGIES: PENICILLIN. CODE STATUS: FULL CODE. FAMILY HISTORY: Noncontributory. SOCIAL HISTORY: She lives in [place] with her parents. She does not use tobacco, ETOH or illicit drugs. REVIEW OF SYSTEMS: Negative except as per History of Present Illness. PHYSICAL EXAMINATION: VITAL SIGNS: Temperature 97.8, pulse 67, blood pressure 93/59, respirations 12, satting 100% on room air. Admission weight 59.4 kg. GENERAL: The patient is resting comfortably. Appears to be in no acute distress. She is alert. HEENT: Tympanic membranes are clear bilaterally. Oropharynx was pink and moist without any lesions. NECK: Supple, non-tender. Full range of motion. CHEST: Lungs were clear to auscultation bilaterally without any rhonchi, wheezing or rales. CARDIOVASCULAR: Regular rate and rhythm with a notable systolic murmur. No rales or rhonchi. GASTROINTESTINAL: Abdomen is soft, non-tender. Positive bowel sounds. EXTREMITIES: No clubbing, cyanosis or edema. Distally pulses are strong, capillary refill is brisk. There is a dressing in place over the right lateral aspect of the right hip that is dry and intact with no signs of infectious process. NEUROLOGIC: She is alert and oriented times three. LABORATORY: No laboratory pending at time of admission. No radiographic studies pending at time of admission. ASSESSMENT: 1. Osteoarthritis of the right hip status post right total hip arthroplasty, postoperative day #3 requiring ongoing continuing patient rehabilitation efforts through Swing Bed Program. 2. Down's syndrome. 3. Seizure disorder. 4. Hyperlipidemia. 5. Hypothyroidism. PLAN: Will admit the patient to Swing Bed Program for continuation of her physical therapy and rehabilitation efforts. She will be on continuation of anticoagulation with Xarelto for an additional 31 days. She will get a physical therapy evaluation. Will resume her home medications as appropriate care. Will anticipate her length of stay to be at least 3 to 7 days. Until she can transition to outpatient management and meets her physical therapy rehabilitation efforts and goals, will continue to monitor and treat as needed. [facility][id number] [facility]
[2018-09-03] MEDS ORDERED: LEVOTHYROXINE SODIUM 0.025 MG TAB ONE (19:26)
[2018-09-03] MEDS: HYDROcodone 5MG/APAP 325MG 1 EA TAB PO PRN (20:07)
[2018-09-04] MEDS: HYDROcodone 5MG/APAP 325MG 1 EA TAB PO PRN ×3 (06:44→20:17)
[2018-09-04] MEDS: LEVOTHYROXINE SODIUM 0.025 MG TAB PO SCH (06:45)
--- NOTE | 2018-09-04 08:08 | PN ---
DATE: 09/04/18 SUBJECTIVE: Ms. Summers has minimal pain. She is up to a chair. OBJECTIVE: Afebrile. Vital signs stable. Wound is clean. There are no signs or symptoms of infection. ASSESSMENT: Status post total hip arthroplasty. PLAN: The plan is to keep her on her current status and she will continue on inpatient status. #[id number] [facility]
[2018-09-04] MEDS ORDERED: CALCIUM CARBONATE (ANTACID) 500 MG CHEWABLE TAB PO ONE (08:22)
[2018-09-04] MEDS: CALCIUM CARBONATE (ANTACID) 500 MG CHEWABLE TAB PO SCH (08:39)
[2018-09-04] MEDS: DOCUSATE SODIUM 100 MG CAP PO SCH (08:39)
[2018-09-04] MEDS: DULoxetine HCL 30 MG CAP PO SCH (08:39)
[2018-09-04] MEDS: ASPIRIN (ENTERIC COATED) 81 MG TAB PO SCH (08:40)
[2018-09-04] MEDS: RIVAROXABAN 10 MG TAB PO SCH (08:40)
[2018-09-04] MEDS: lamoTRIgine 25 MG TAB PO SCH (17:06)
[2018-09-05] MEDS: LEVOTHYROXINE SODIUM 0.025 MG TAB PO SCH (06:20)
[2018-09-05] MEDS: HYDROcodone 5MG/APAP 325MG 1 EA TAB PO PRN ×2 (06:37→13:20)
[2018-09-05] MEDS ORDERED: CALCIUM CARBONATE (ANTACID) 500 MG CHEWABLE TAB PO ONE (08:26)
[2018-09-05] MEDS: DULoxetine HCL 30 MG CAP PO SCH (08:40)
[2018-09-05] MEDS: DOCUSATE SODIUM 100 MG CAP PO SCH (08:40)
[2018-09-05] MEDS: ASPIRIN (ENTERIC COATED) 81 MG TAB PO SCH (08:40)
[2018-09-05] MEDS: RIVAROXABAN 10 MG TAB PO SCH (08:40)
[2018-09-05] MEDS: CALCIUM CARBONATE (ANTACID) 500 MG CHEWABLE TAB PO SCH (08:41)
[2018-09-05] MEDS: lamoTRIgine 25 MG TAB PO SCH (18:02)
[2018-09-06] MEDS: HYDROcodone 5MG/APAP 325MG 1 EA TAB PO PRN (05:35)
[2018-09-06] MEDS: LEVOTHYROXINE SODIUM 0.025 MG TAB PO SCH (06:03)
[2018-09-06] MEDS ORDERED: CALCIUM CARBONATE (ANTACID) 500 MG CHEWABLE TAB PO ONE (08:31)
[2018-09-06] MEDS: DOCUSATE SODIUM 100 MG CAP PO SCH (08:45)
[2018-09-06] MEDS: ASPIRIN (ENTERIC COATED) 81 MG TAB PO SCH (08:46)
[2018-09-06] MEDS: CALCIUM CARBONATE (ANTACID) 500 MG CHEWABLE TAB PO SCH (08:46)
[2018-09-06] MEDS: RIVAROXABAN 10 MG TAB PO SCH (08:46)
[2018-09-06] MEDS: DULoxetine HCL 30 MG CAP PO SCH (08:46)
[2018-09-06] MEDS: lamoTRIgine 25 MG TAB PO SCH (17:56)
[2018-09-07] MEDS: HYDROcodone 5MG/APAP 325MG 1 EA TAB PO PRN (01:35)
[2018-09-07] MEDS: LEVOTHYROXINE SODIUM 0.025 MG TAB PO SCH (06:23)
[2018-09-07] MEDS ORDERED: CALCIUM CARBONATE (ANTACID) 500 MG CHEWABLE TAB PO ONE (09:09)
[2018-09-07] MEDS: ASPIRIN (ENTERIC COATED) 81 MG TAB PO SCH (09:50)
[2018-09-07] MEDS: DOCUSATE SODIUM 100 MG CAP PO SCH (09:50)
[2018-09-07] MEDS: RIVAROXABAN 10 MG TAB PO SCH (09:50)
[2018-09-07] MEDS: CALCIUM CARBONATE (ANTACID) 500 MG CHEWABLE TAB PO SCH (09:50)
[2018-09-07] MEDS: DULoxetine HCL 30 MG CAP PO SCH (09:50)
[2018-09-07] MEDS: lamoTRIgine 25 MG TAB PO SCH (17:27)
[2018-09-08] MEDS: LEVOTHYROXINE SODIUM 0.025 MG TAB PO SCH (06:30)
[2018-09-08] MEDS ORDERED: CALCIUM CARBONATE (ANTACID) 500 MG CHEWABLE TAB PO ONE (08:48)
[2018-09-08] MEDS: ASPIRIN (ENTERIC COATED) 81 MG TAB PO SCH (09:49)
[2018-09-08] MEDS: DULoxetine HCL 30 MG CAP PO SCH (09:49)
[2018-09-08] MEDS: DOCUSATE SODIUM 100 MG CAP PO SCH (09:49)
[2018-09-08] MEDS: CALCIUM CARBONATE (ANTACID) 500 MG CHEWABLE TAB PO SCH (09:50)
[2018-09-08] MEDS: RIVAROXABAN 10 MG TAB PO SCH (09:52)
[2018-09-08] MEDS: ACETAMINOPHEN 500 MG TAB PO PRN (16:59)
[2018-09-08] MEDS: lamoTRIgine 25 MG TAB PO SCH (18:42)
[2018-09-09] MEDS: LEVOTHYROXINE SODIUM 0.025 MG TAB PO SCH (06:14)
[2018-09-09] MEDS ORDERED: CALCIUM CARBONATE (ANTACID) 500 MG CHEWABLE TAB PO ONE (08:50)
[2018-09-09] MEDS: ASPIRIN (ENTERIC COATED) 81 MG TAB PO SCH (09:05)
[2018-09-09] MEDS: DULoxetine HCL 30 MG CAP PO SCH (09:05)
[2018-09-09] MEDS: DOCUSATE SODIUM 100 MG CAP PO SCH (09:06)
[2018-09-09] MEDS: CALCIUM CARBONATE (ANTACID) 500 MG CHEWABLE TAB PO SCH (09:06)
[2018-09-09] MEDS: RIVAROXABAN 10 MG TAB PO SCH (09:06)
[2018-09-09] MEDS: lamoTRIgine 25 MG TAB PO SCH (17:53)
[2018-09-10] MEDS: ACETAMINOPHEN 500 MG TAB PO PRN (02:30)
[2018-09-10] MEDS: LEVOTHYROXINE SODIUM 0.025 MG TAB PO SCH (06:22)
[2018-09-10] MEDS ORDERED: CALCIUM CARBONATE (ANTACID) 500 MG CHEWABLE TAB PO ONE (07:15)
[2018-09-10] MEDS: CALCIUM CARBONATE (ANTACID) 500 MG CHEWABLE TAB PO SCH (08:14)
[2018-09-10] MEDS: RIVAROXABAN 10 MG TAB PO SCH (08:14)
[2018-09-10] MEDS: DULoxetine HCL 30 MG CAP PO SCH (08:14)
[2018-09-10] MEDS: ASPIRIN (ENTERIC COATED) 81 MG TAB PO SCH (08:14)
[2018-09-10] MEDS: DOCUSATE SODIUM 100 MG CAP PO SCH (08:14)
[2018-09-10] MEDS: lamoTRIgine 25 MG TAB PO SCH (18:03)
[2018-09-11] MEDS: LEVOTHYROXINE SODIUM 0.025 MG TAB PO SCH (06:18)
[2018-09-11] MEDS ORDERED: CALCIUM CARBONATE (ANTACID) 500 MG CHEWABLE TAB PO ONE (08:42)
[2018-09-11] MEDS: DULoxetine HCL 30 MG CAP PO SCH (09:02)
[2018-09-11] MEDS: CALCIUM CARBONATE (ANTACID) 500 MG CHEWABLE TAB PO SCH (09:05)
[2018-09-11] MEDS: ASPIRIN (ENTERIC COATED) 81 MG TAB PO SCH (09:06)
[2018-09-11] MEDS: RIVAROXABAN 10 MG TAB PO SCH (09:06)
[2018-09-11] MEDS: ACETAMINOPHEN 500 MG TAB PO PRN (09:06)
[2018-09-11] MEDS: DOCUSATE SODIUM 100 MG CAP PO SCH (09:06)
--- NOTE | 2018-09-11 13:50 | PN ---
SUPERVISING PHYSICIAN: Grant Solorzano MD DATE: 09/11/18 SUBJECTIVE: The patient is sitting up in her chair. Her dad is at her bedside. I discussed at length with her father that she would continue to need assistance with her care. He and his are getting to the point where she may need to be taken care of after discharge and he is undecided on what that care will be. He wants to talk to Dr. Alarcon when he is back at the hospital. OBJECTIVE: VITAL SIGNS: Temperature 98.6. Heart rate 59. Blood pressure 91/60. Respiratory rate 14. O2 saturation 99% on room air. RESPIRATORY: Essentially clear to auscultation bilaterally. CARDIAC: Regular rate and rhythm. GASTROINTESTINAL: Abdomen is soft, nondistended. Bowel sounds are positive. EXTREMITIES: There is a dressing to her right lateral hip that is dry and intact. Bilateral pedal pulses are palpable at +2. NEUROLOGIC: Awake, alert. LABORATORY: There are no labs or films to report at this time. ASSESSMENT: 1. Osteoarthritis of the right hip status post right total hip arthroplasty, postoperative day #10, requiring ongoing continuing patient rehabilitation efforts through Swing Bed admission. 2. Down's syndrome. 3. Seizure disorder. 4. Hyperlipidemia. 5. Hypothyroidism. PLAN: We will continue present supportive care. She will be on Swing Bed until further evaluation. I have spoken to JANUSZ Robles, about her discharge plan and we will have her talk with the family later as well as Dr. Alarcon to finalize their discharge plan. Otherwise, we will continue to monitor the patient closely and follow as needed. #[id number] [facility]
[2018-09-11] MEDS: lamoTRIgine 25 MG TAB PO SCH (18:32)
[2018-09-12] MEDS: LEVOTHYROXINE SODIUM 0.025 MG TAB PO SCH (06:18)
[2018-09-12] MEDS: DOCUSATE SODIUM 100 MG CAP PO SCH (10:18)
[2018-09-12] MEDS: DULoxetine HCL 30 MG CAP PO SCH (10:18)
[2018-09-12] MEDS: ASPIRIN (ENTERIC COATED) 81 MG TAB PO SCH (10:18)
[2018-09-12] MEDS: RIVAROXABAN 10 MG TAB PO SCH (10:18)
[2018-09-12] MEDS: ACETAMINOPHEN 500 MG TAB PO PRN (10:18)
[2018-09-12] MEDS: CALCIUM CARBONATE (ANTACID) 500 MG CHEWABLE TAB PO SCH (10:19)
[2018-09-12] MEDS: lamoTRIgine 25 MG TAB PO SCH (18:20)
[2018-09-13] MEDS: LEVOTHYROXINE SODIUM 0.025 MG TAB PO SCH (05:56)
[2018-09-13] MEDS: ASPIRIN (ENTERIC COATED) 81 MG TAB PO SCH (09:41)
[2018-09-13] MEDS: DOCUSATE SODIUM 100 MG CAP PO SCH (09:55)
[2018-09-13] MEDS: ACETAMINOPHEN 500 MG TAB PO PRN (09:56)
[2018-09-13] MEDS: DULoxetine HCL 30 MG CAP PO SCH (09:56)
[2018-09-13] MEDS: RIVAROXABAN 10 MG TAB PO SCH (09:56)
[2018-09-13] MEDS: CALCIUM CARBONATE (ANTACID) 500 MG CHEWABLE TAB PO SCH (09:57)
[2018-09-13] MEDS: lamoTRIgine 25 MG TAB PO SCH (19:58)
[2018-09-14] MEDS: LEVOTHYROXINE SODIUM 0.025 MG TAB PO SCH (06:46)
--- NOTE | 2018-09-14 09:05 | PN ---
DATE: 09/14/18 SUBJECTIVE: The patient is sitting up in chair, just finished breakfast. She states the cold sore she had on her lip starting bleeding yesterday. No other new complaints or problems. She is still working with physical therapy at this time. OBJECTIVE: VITAL SIGNS: Temperature 97.9. Heart rate 56. Blood pressure 86/56 while sleeping. Within normal limits while awake. Oxygen saturation 99% on room air. RESPIRATORY: Lungs clear to auscultation, no wheezes or crackles. CARDIOVASCULAR: Regular rate and rhythm, no murmurs. GASTROINTESTINAL: Abdomen soft, nontender, no masses. EXTREMITIES: Dressing in place to her right hip and is clean and intact. NEUROLOGIC: Awake and alert, at baseline per family member. LABORATORY: No new labs at this time. ASSESSMENT: 1. Osteoarthritis of the right hip status post right total hip arthroplasty, postoperative day #13, requiring ongoing continuing patient rehabilitation efforts through Swing Bed admission. 2. Down's syndrome. 3. Seizure disorder. 4. Hyperlipidemia. 5. Hypothyroidism. PLAN: The patient is currently undergoing physical therapy and continued supportive care. She has been by a secondary social studies teacher who is assessing her status day to day. Likely, we will need to remain close for the remainder of her Swing Bed stay. #[id number] [facility]
[2018-09-14] MEDS: DULoxetine HCL 30 MG CAP PO SCH (09:25)
[2018-09-14] MEDS: RIVAROXABAN 10 MG TAB PO SCH (09:25)
[2018-09-14] MEDS: CALCIUM CARBONATE (ANTACID) 500 MG CHEWABLE TAB PO SCH (09:25)
[2018-09-14] MEDS: ASPIRIN (ENTERIC COATED) 81 MG TAB PO SCH (09:25)
[2018-09-14] MEDS: DOCUSATE SODIUM 100 MG CAP PO SCH (09:25)
[2018-09-14] MEDS: lamoTRIgine 25 MG TAB PO SCH (18:44)
[2018-09-14] MEDS: NEOMYCIN-BACITRACIN-POLYMYXIN 0.9 GM UD TOP PRN (19:05)
[2018-09-15] MEDS: LEVOTHYROXINE SODIUM 0.025 MG TAB PO SCH (06:35)
[2018-09-15] MEDS: ASPIRIN (ENTERIC COATED) 81 MG TAB PO SCH (10:08)
[2018-09-15] MEDS: DOCUSATE SODIUM 100 MG CAP PO SCH (10:08)
[2018-09-15] MEDS: CALCIUM CARBONATE (ANTACID) 500 MG CHEWABLE TAB PO SCH (10:08)
[2018-09-15] MEDS: RIVAROXABAN 10 MG TAB PO SCH (10:08)
[2018-09-15] MEDS: DULoxetine HCL 30 MG CAP PO SCH (10:08)
[2018-09-15] MEDS: lamoTRIgine 25 MG TAB PO SCH (17:47)
[2018-09-15] MEDS ORDERED: INSULIN PROTAMINE/LISPRO 75/25 100 UNITS/ML PEN SUBCU ONE (17:57)
[2018-09-16] MEDS: LEVOTHYROXINE SODIUM 0.025 MG TAB PO SCH (06:41)
[2018-09-16] MEDS: DOCUSATE SODIUM 100 MG CAP PO SCH (08:28)
[2018-09-16] MEDS: CALCIUM CARBONATE (ANTACID) 500 MG CHEWABLE TAB PO SCH (08:28)
[2018-09-16] MEDS: ASPIRIN (ENTERIC COATED) 81 MG TAB PO SCH (08:28)
[2018-09-16] MEDS: RIVAROXABAN 10 MG TAB PO SCH (08:28)
[2018-09-16] MEDS: DULoxetine HCL 30 MG CAP PO SCH (08:28)
[2018-09-16] MEDS: ACETAMINOPHEN 500 MG TAB PO PRN (08:50)
[2018-09-16] MEDS: HYDROcodone 5MG/APAP 325MG 1 EA TAB PO PRN ×3 (10:08→20:27)
[2018-09-16] MEDS: MULTIPLE VITAMINS W/ MINERALS 1 EA TAB PO SCH (12:50)
--- NOTE | 2018-09-16 13:37 | PN ---
DATE: 09/16/18 SUPERVISING PHYSICIAN: Sedrick You M.D. SUBJECTIVE: The patient is doing fairly well. She is starting to have a little bit of pain in her right knee. Her father is concerned that it is from overuse. I explained to him that she is going to have some soreness in her knee due to the right hip and realignment of her leg, and Physical Therapy certainly will address it. Otherwise she has had no further complaints. OBJECTIVE: VITAL SIGNS: Showing to be stable. Temperature 98.4, pulse 60, blood pressure 111/61, respirations 16, satting 95% on room air. GENERAL: The patient is resting comfortably in bed with wedge in place. She is alert. CHEST: Lung sounds are clear to auscultation. HEART: Regular rate and rhythm. ABDOMEN: Soft, non-tender. Positive bowel sounds. EXTREMITIES: Dressing remains in place over the right hip that is clean and dry. The right knee does show some mild edema but no erythema. It is not tender to touch. No signs of infection. NEUROLOGIC: She is awake, alert and per family member baseline neurological status. LABORATORY: No new laboratory. ASSESSMENT: 1. Osteoarthritis of the right hip status post right total hip arthroplasty, postoperative day #15, requiring ongoing continuing patient rehabilitation efforts through Swing Bed admission. 2. Down's syndrome. 3. Seizure disorder. 4. Hyperlipidemia. 5. Hypothyroidism. PLAN: Will go ahead and give her some Furlong as Tylenol does not appear to be working for her knee. I did discuss with her dad that we would try the Furlong to see if this will give her relief. I requested that the nurses let her have her rest period today, to be up to a chair but not to do any extra walking to give the knee a rest until tomorrow. Will make sure that Physical Therapy assess the knee and is aware of the pain. She will continue with physical therapy and will see her as needed. Again, she will likely be here until day 21. Until then will continue to treat as needed. [facility][id number] [facility]
[2018-09-16] MEDS: lamoTRIgine 25 MG TAB PO SCH (17:17)
[2018-09-16] MEDS: NEOMYCIN-BACITRACIN-POLYMYXIN 0.9 GM UD TOP PRN (22:52)
[2018-09-17] MEDS: HYDROcodone 5MG/APAP 325MG 1 EA TAB PO PRN ×2 (00:23→04:47)
[2018-09-17] MEDS: LEVOTHYROXINE SODIUM 0.025 MG TAB PO SCH (06:24)
[2018-09-17] MEDS ORDERED: KETOROLAC TROMETHAMINE INJ 60 MG/2 ML VIAL IM ONE (08:38)
[2018-09-17] MEDS ORDERED: KETOROLAC TROMETHAMINE INJ 30 MG/ML VIAL ONE (09:16)
[2018-09-17] MEDS: DOCUSATE SODIUM 100 MG CAP PO SCH (09:23)
[2018-09-17] MEDS: ASPIRIN (ENTERIC COATED) 81 MG TAB PO SCH (09:23)
[2018-09-17] MEDS: CALCIUM CARBONATE (ANTACID) 500 MG CHEWABLE TAB PO SCH (09:23)
[2018-09-17] MEDS: MULTIPLE VITAMINS W/ MINERALS 1 EA TAB PO SCH (09:23)
[2018-09-17] MEDS: DULoxetine HCL 30 MG CAP PO SCH (09:24)
[2018-09-17] MEDS: RIVAROXABAN 10 MG TAB PO SCH (10:17)
--- NOTE | 2018-09-17 12:03 | RAD ---
EXAM DESCRIPTION: Knee,Right 2 or More Views: CR/DR/XR. CLINICAL HISTORY: swelling w/pain s/p TRH POD #18 COMPARISON: MRI right knee 06/28/2018. Radiographs right knee 06/15/2018. TECHNIQUE/FINDINGS: 2 views right knee. Dressing around the body part. Again noted is narrowing of the lateral compartment compared to the medial compartment with marginal spurs. Minimal calcification in the meniscus or cartilage. Narrowing of the proximal tibiofibular joint. No definite fracture. Spurs on the superior and inferior patella. Overall bone density is decreased. IMPRESSION: No acute bony or joint margin abnormality of the right knee, limited due to partially radiodense dressing overlying the body part. Patellofemoral arthrosis and lateral compartment arthrosis is stable. Electronically signed by: Bryon Barnard MD 09/17/2018 12:01 PM CDT
--- NOTE | 2018-09-17 15:11 | PN ---
SUPERVISING PHYSICIAN: Coy Salas MD DATE: 09/17/18 SUBJECTIVE: The patient is still having some knee pain. We were able to do an x-ray this morning and I discussed those results with the patient's father noting that there were no acute findings compared to previous exams. We did discuss that more likely it is postoperative changes and we would work with her medication regimen to further decrease her symptoms. I again encouraged her to be up in a chair for meals as she has been refusing her physical therapy, but I talked at length with her father. We will try a Belton 30 minutes before therapy and try to get her up today. OBJECTIVE: VITAL SIGNS: Vital signs remain stable. GENERAL: The patient is resting comfortably in bed with wedge in place. She is alert. CHEST: Lung sounds are clear to auscultation. HEART: Regular rate and rhythm. ABDOMEN: Soft, nontender. Positive bowel sounds. EXTREMITIES: Dressing remains in place over the right hip that is clean and dry. The right knee does show some mild edema but no erythema. It is not tender to touch. No signs of infection. NEUROLOGIC: She is awake, alert and per family member baseline neurological status. LABORATORY: No new laboratory. RADIOLOGY: Right knee x-ray per radiologic interpretation shows no acute bony or joint margin abnormalities of the right knee. ASSESSMENT: 1. Osteoarthritis of the right hip status post right total hip arthroplasty, postoperative day #16, requiring ongoing continuing patient rehabilitation efforts through Swing Bed admission. 2. Right knee pain exacerbated by osteoarthritis and ongoing rehab. 3. Down's syndrome. 4. Seizure disorder. 5. Hyperlipidemia. 6. Hypothyroidism. PLAN: I did talk at length with the patient and the father and reassured them there was nothing acutely found on exam or x-ray studies. I talked to Dr. Alarcon and we are going to try the Iceman p.r.n. and we will try Toradol 60 mg times one dose and start her on some Celebrex 100 mg twice daily. I have changed her Belton to 1 to 2 with instructions to the nurses to give one initially and as she again starts having pain which apparently is about an hour before the next dose, they can give the second dose. We are trying to avoid sedation of the patient because apparently when she does take Belton, she does not want to do anything but sleep. The patient is in good spirits. Her father seems to be understanding at this point, but, again, reinforcing that she has to have physical therapy prior to completion of her Swing Bed stay. We will continue to follow her along with Physical Therapy as needed. We will again anticipate discharge within this week. Until then, we will continue to monitor and treat as needed. #[id number] [facility]
[2018-09-17] MEDS: CELECOXIB 100 MG CAP PO SCH (16:32)
[2018-09-17] MEDS: lamoTRIgine 25 MG TAB PO SCH (17:28)
[2018-09-18] MEDS: LEVOTHYROXINE SODIUM 0.025 MG TAB PO SCH (06:04)
[2018-09-18] MEDS: MULTIPLE VITAMINS W/ MINERALS 1 EA TAB PO SCH (08:11)
[2018-09-18] MEDS: DOCUSATE SODIUM 100 MG CAP PO SCH (08:11)
[2018-09-18] MEDS: RIVAROXABAN 10 MG TAB PO SCH (08:11)
[2018-09-18] MEDS: CELECOXIB 100 MG CAP PO SCH ×2 (08:11→17:20)
[2018-09-18] MEDS: DULoxetine HCL 30 MG CAP PO SCH (08:11)
[2018-09-18] MEDS: CALCIUM CARBONATE (ANTACID) 500 MG CHEWABLE TAB PO SCH (08:11)
[2018-09-18] MEDS: ASPIRIN (ENTERIC COATED) 81 MG TAB PO SCH (08:11)
[2018-09-18] MEDS: HYDROcodone 5MG/APAP 325MG 1 EA TAB PO PRN ×2 (08:28→13:27)
[2018-09-18] MEDS: lamoTRIgine 25 MG TAB PO SCH (17:20)
[2018-09-19] MEDS: LEVOTHYROXINE SODIUM 0.025 MG TAB PO SCH (06:08)
[2018-09-19] MEDS: CELECOXIB 100 MG CAP PO SCH ×2 (07:26→17:54)
[2018-09-19] MEDS: RIVAROXABAN 10 MG TAB PO SCH (09:56)
[2018-09-19] MEDS: ACETAMINOPHEN 500 MG TAB PO PRN (09:56)
[2018-09-19] MEDS: DOCUSATE SODIUM 100 MG CAP PO SCH (09:56)
[2018-09-19] MEDS: CALCIUM CARBONATE (ANTACID) 500 MG CHEWABLE TAB PO SCH (09:56)
[2018-09-19] MEDS: MULTIPLE VITAMINS W/ MINERALS 1 EA TAB PO SCH (09:56)
[2018-09-19] MEDS: DULoxetine HCL 30 MG CAP PO SCH (09:56)
[2018-09-19] MEDS: ASPIRIN (ENTERIC COATED) 81 MG TAB PO SCH (09:56)
[2018-09-19] MEDS: lamoTRIgine 25 MG TAB PO SCH (17:57)
[2018-09-20] MEDS: LEVOTHYROXINE SODIUM 0.025 MG TAB PO SCH (06:15)
[2018-09-20] MEDS: CELECOXIB 100 MG CAP PO SCH ×2 (07:42→17:39)
[2018-09-20] MEDS: ASPIRIN (ENTERIC COATED) 81 MG TAB PO SCH (09:26)
[2018-09-20] MEDS: DOCUSATE SODIUM 100 MG CAP PO SCH (09:26)
[2018-09-20] MEDS: RIVAROXABAN 10 MG TAB PO SCH (09:26)
[2018-09-20] MEDS: CALCIUM CARBONATE (ANTACID) 500 MG CHEWABLE TAB PO SCH (09:26)
[2018-09-20] MEDS: MULTIPLE VITAMINS W/ MINERALS 1 EA TAB PO SCH (09:26)
[2018-09-20] MEDS: DULoxetine HCL 30 MG CAP PO SCH (09:26)
[2018-09-20] MEDS: lamoTRIgine 25 MG TAB PO SCH (17:39)
--- NOTE | 2018-09-20 21:09 | PN ---
DATE: 09/20/18 SUPERVISING PHYSICIAN: Coy Salas M.D. SUBJECTIVE: The patient is progressing well. We anticipate her going home on Monday. Her knee is no longer bothering her. Dr. Alarcon did see her and she was started on Celebrex as well as she was given a single dose of Toradol. She has been progressing well in rehab and she has had no further complaints. No nausea, vomiting, diarrhea or chest pain. OBJECTIVE: Vital signs remain stable. GENERAL: The patient is ambulating in the hallway. Appears to be doing well. She is alert. CHEST: Lungs remain clear to auscultation. HEART: Regular rate and rhythm. ABDOMEN: Soft, non- tender. Positive bowel sounds. EXTREMITIES: Dressing remains in place over the right hip that is clean and dry. No signs of infection. Right knee is much less swollen than previous days. It is not as tender to touch. NEUROLOGIC: She is alert and oriented times three. LABORATORY: No new laboratory. RADIOLOGY: No new radiographic studies. ASSESSMENT: 1. Osteoarthritis of the right hip status post right total hip arthroplasty, postoperative day #19, requiring ongoing continuing patient rehabilitation efforts through Swing Bed admission. 2. Right knee pain exacerbated by osteoarthritis and ongoing rehab showing to be responding to treatment with improvement. 3. Down's syndrome. 4. Seizure disorder. 5. Hyperlipidemia. 6. Hypothyroidism. PLAN: Will continue to follow the patient as she progresses through her rehab and physical therapy rehabilitation. Anticipate discharging on Monday. She has been getting good pain control with Sod. Will continue to follow the patient as needed until she is discharged. Again, anticipate discharge Monday. Until that point will continue to follow as needed. #[id number] [facility]
[2018-09-21] MEDS: LEVOTHYROXINE SODIUM 0.025 MG TAB PO SCH (06:10)
[2018-09-21] MEDS: CELECOXIB 100 MG CAP PO SCH ×2 (07:17→17:20)
[2018-09-21] MEDS: CALCIUM CARBONATE (ANTACID) 500 MG CHEWABLE TAB PO SCH (09:18)
[2018-09-21] MEDS: DULoxetine HCL 30 MG CAP PO SCH (09:18)
[2018-09-21] MEDS: RIVAROXABAN 10 MG TAB PO SCH (09:18)
[2018-09-21] MEDS: MULTIPLE VITAMINS W/ MINERALS 1 EA TAB PO SCH (09:19)
[2018-09-21] MEDS: DOCUSATE SODIUM 100 MG CAP PO SCH (09:19)
[2018-09-21] MEDS: ASPIRIN (ENTERIC COATED) 81 MG TAB PO SCH (09:19)
[2018-09-21] MEDS: lamoTRIgine 25 MG TAB PO SCH (17:20)
[2018-09-22] MEDS: ACETAMINOPHEN 500 MG TAB PO PRN (03:34)
[2018-09-22] MEDS: LEVOTHYROXINE SODIUM 0.025 MG TAB PO SCH (06:07)
[2018-09-22] MEDS: CELECOXIB 100 MG CAP PO SCH ×2 (07:21→17:54)
[2018-09-22] MEDS: ASPIRIN (ENTERIC COATED) 81 MG TAB PO SCH (10:05)
[2018-09-22] MEDS: DOCUSATE SODIUM 100 MG CAP PO SCH (10:05)
[2018-09-22] MEDS: CALCIUM CARBONATE (ANTACID) 500 MG CHEWABLE TAB PO SCH (10:05)
[2018-09-22] MEDS: MULTIPLE VITAMINS W/ MINERALS 1 EA TAB PO SCH (10:05)
[2018-09-22] MEDS: RIVAROXABAN 10 MG TAB PO SCH (10:05)
[2018-09-22] MEDS: DULoxetine HCL 30 MG CAP PO SCH (10:06)
[2018-09-22] MEDS: lamoTRIgine 25 MG TAB PO SCH (17:52)
[2018-09-23] MEDS: LEVOTHYROXINE SODIUM 0.025 MG TAB PO SCH (06:17)
[2018-09-23] MEDS: ACETAMINOPHEN 500 MG TAB PO PRN (08:29)
[2018-09-23] MEDS: CELECOXIB 100 MG CAP PO SCH (08:29)
[2018-09-23] MEDS: DOCUSATE SODIUM 100 MG CAP PO SCH (08:30)
[2018-09-23] MEDS: ASPIRIN (ENTERIC COATED) 81 MG TAB PO SCH (08:30)
[2018-09-23] MEDS: DULoxetine HCL 30 MG CAP PO SCH (08:30)
[2018-09-23] MEDS: MULTIPLE VITAMINS W/ MINERALS 1 EA TAB PO SCH (08:30)
[2018-09-23] MEDS: CALCIUM CARBONATE (ANTACID) 500 MG CHEWABLE TAB PO SCH (08:30)
[2018-09-23] MEDS: RIVAROXABAN 10 MG TAB PO SCH (08:30)
[2018-09-23 09:34] VITALS: BP 90/59; TEMP 98.1; O2SAT 98
--- NOTE | 2018-09-23 12:44 | DS ---
SUPERVISING PHYSICIAN: Sedrick You M.D. ADMISSION DIAGNOSIS: 1. Osteoarthritis of the right hip status post right total hip arthroplasty. 2. Down's syndrome. 3. Seizure disorder. 4. Hyperlipidemia. 5. Hypothyroidism. DISCHARGE DIAGNOSIS: 1. Osteoarthritis of the right hip status post right total hip arthroplasty. 2. Down's syndrome. 3. Seizure disorder. 4. Hyperlipidemia. 5. Hypothyroidism. HOSPITAL COURSE: This is a 52 year-old female who presented to the hospital on 08/31 initially for elective right total hip arthroplasty. She progressed fairly well and was transferred from inpatient, postoperative patient to Swing Bed patient for continued physical therapy. On the , she started the Swing Bed admission. During that time she participated in physical therapy and rehab as well. She did well during that phase but during the admission developed some right knee pain and was placed on Celebrex which improved the pain. During that time she was also anticoagulated with Xarelto. Today, she will be discharged home on 09/23/18. PLAN: She will be discharged with another 11 days of Xarelto and those instructions have been given to her family. She will start that tomorrow. Additionally she has been given a prescription for Celebrex for her right knee pain. Activity is to continue to participate in physical therapy and diet is unchanged. I have written for her to call Dr. Alarcon's office tomorrow for a followup appointment as well. #[id number] [facility]
== END 2018-09-23 10:05 | disposition home health service (06) | DRG 561 ==
LOC: UNDOADMIN 13:30 → MS 13:30
PROVIDERS: ADMIT Nurse Practitioner Family; ATTEND Nurse Practitioner
DX: Z47.1 Aftercare following joint replacement surgery (principal); M25.561 Pain in right knee; B00.1 Herpesviral vesicular dermatitis; G40.909 Epilepsy, unspecified, not intractable, without status epilepticus; E78.5 Hyperlipidemia, unspecified; E03.9 Hypothyroidism, unspecified; Q90.9 Down syndrome, unspecified; Z96.641 Presence of right artificial hip joint; Z88.0 Allergy status to penicillin; Z79.82 Long term (current) use of aspirin; Z79.899 Other long term (current) drug therapy

== ENCOUNTER 2019-01-21 04:58 | Day surgery (SDC) | payer MEDICARE, MEDICAID ==
[2019-01-21] MEDS ORDERED: PROPARACAINE 0.5% OPHTH SOL 15 ML BTTL BOTH_EYES ONE (04:59)
[2019-01-21] MEDS ORDERED: TROP 1%/CYCLOPEN 1%/PHENYL 2% DROPS OPHTH ONE (04:59)
[2019-01-21] MEDS ORDERED: MOXIFLOXACIN HCL (OPHTH) 1 DROP DROPS BOTH_EYES ONE (04:59)
[2019-01-21] MEDS ORDERED: TOBRAMYCIN SULF 0.3 % OPHT SOL 1 DROP OPHTH ONE (04:59)
== END 2019-01-21 07:15 | disposition home or self-care (01) ==
LOC: AMB 04:58
PROVIDERS: ATTEND Ophthalmology
DX: H26.492 Other secondary cataract, left eye (principal); I10 Essential (primary) hypertension; Z88.0 Allergy status to penicillin

== ENCOUNTER → 2019-01-25 | Outpatient (CLI) | payer MEDICARE, MEDICAID | LOC: GMAM 10:47 | PROVIDERS: ATTEND Family Medicine | DX: E03.9 Hypothyroidism, unspecified (principal); E78.2 Mixed hyperlipidemia ==

== ENCOUNTER → 2019-09-24 | Outpatient (CLI) | payer MEDICARE, MEDICAID | LOC: GMAM 11:12 | PROVIDERS: ATTEND Family Medicine | DX: E03.9 Hypothyroidism, unspecified (principal); E78.2 Mixed hyperlipidemia ==

== ENCOUNTER → 2020-03-17 | Outpatient (CLI) | payer MEDICARE, MEDICAID ==
--- NOTE | 2020-03-19 19:48 | MAM ---
EXAM DESCRIPTION: 3D Screening BILATERAL : Digital Mammography. CLINICAL HISTORY: 54 years Female SCREENING . No complaints. No family history breast cancer. Menarche age 17. No Childbirth. Menopause at age 42. No HRT. Lifetime risk of developing breast cancer (Tyrer-Cuzick model)(%): 8.8. COMPARISON: Bilateral screening digital breast tomosynthesis November 2017 and November 2016 No prior reports available. TECHNIQUE: Bilateral CC and MLO projection full-field images, digital tomosynthesis mammographic technique. Bilateral digital 2-D full-field MLO images. CAD available for 2-D images. FINDINGS: The breast parenchymal density pattern is: Scattered areas of fibroglandular density. Solitary microcalcifications. Focal dense circumscribed tissues upper outer quadrants bilaterally enlarging since the prior study. Smaller, intramammary circumscribed densities most likely lymph nodes or cysts. No skin thickening or nipple retraction No new suspicious microcalcifications since the prior study. IMPRESSION: BI-RADS CATEGORY: 0 - INCOMPLETE- Need additional imaging evaluation. RECOMMENDATIONS: FOLLOW-UP: Recall for additional imaging: Directed bilateral breast ultrasound of the regions of interest. Written communication concerning the IMPRESSION and Follow-up, will be mailed to the patient and referring health care provider. Electronically signed by: Bryon Barnard MD 03/19/2020 7:47 PM [employer]
== END ==
LOC: MAMMO 13:39
PROVIDERS: ATTEND Family Medicine
DX: Z12.31 Encounter for screening mammogram for malignant neoplasm of breast (principal)

== ENCOUNTER → 2020-04-02 | Outpatient (CLI) | payer MEDICARE, MEDICAID ==
--- NOTE | 2020-04-05 16:00 | US ---
EXAM DESCRIPTION: Breast,Bilateral: Ultrasound. CLINICAL HISTORY: 54 yearsFemaleABN MAMMO. Bilateral upper outer quadrant breast enlarging densities. COMPARISON: Bilateral screening digital breast tomosynthesis March 17 TECHNIQUE: Transcutaneous scanning of the bilateral breast utilizing mathur-scale and Doppler modes. Scanning performed by the video operator observation by Dr. Barnard. FINDINGS: Dense breast tissue bilaterally with intermittent shadowing but no dominant solid mass, no distinct cysts, no parenchymal edema, and no large calcifications. Nontender with transducer pressure. No abnormal vascularity. IMPRESSION: Benign exam. BIRAD CATEGORY: 2 BENIGN FINDINGS. RECOMMENDATIONS: FOLLOW UP: Routine digital bilateral mammographic screening, one year interval from March 2020. Written communication explaining the IMPRESSION and follow-up, will be mailed to the patient and referring health care provider. The FINDINGS and the FOLLOW-UP plan were reviewed in person with the patient after the examination. According to the [employer], yearly mammograms are recommended starting at age 40 and continuing as long as a woman is in good health. Any breast change noted on a breast self-exam should be reported promptly to the patient's healthcare provider. Breast MRI is recommended for women with an approximately 20-25% or greater lifetime risk of breast cancer, including women with a strong family history of breast or ovarian cancer and women who have been treated for Hodgkin's disease. A negative mammographic report should not delay tissue diagnosis in patients with significant clinical history or physical findings. Extremely dense breast tissue limits the sensitivity of digital mammography. Electronically signed by: Bryon Barnard MD 04/05/2020 3:59 PM [facility]
== END ==
LOC: MAMMO 08:50
PROVIDERS: ATTEND Radiology Diagnostic Radiology
DX: R92.8 Other abnormal and inconclusive findings on diagnostic imaging of breast (principal)